=== PATIENT | female | born 1975 | race African-American/Black ===

== ENCOUNTER 2017-04-07 23:21 | Emergency (ER) | payer OTHER ==
[~2017-04-07] VITALS: Ht 152.4 cm; Wt 64.0 kg
[2017-04-08] MEDS ORDERED: TETANUS, DIPHTHERIA, PERTUSSIS VAC/PF 0.5ML (>7YR OLD) IM ONE (03:00)
[2017-04-08] MEDS ORDERED: LIDOCAINE HCL 1% 20ML VIAL (Pyxis) INJ MC ONE (03:00)
[2017-04-08] MEDS ORDERED: BACITRACIN ZINC OINT UDPKT TOP ONE (03:00)
[2017-04-08] MEDS ORDERED: IBUPROFEN 600MG TABLET PO ONE (04:00)
[2017-04-08 04:14] VITALS: BP 122/86
== END 2017-04-08 04:17 | disposition home or self-care (01) ==
LOC: ER 23:30
DX: T16.1XXA Foreign body in right ear, initial encounter (principal); E11.9 Type 2 diabetes mellitus without complications; X58.XXXA Exposure to other specified factors, initial encounter; Y93.89 Activity, other specified; Y92.89 Other specified places as the place of occurrence of the external cause; Y99.8 Other external cause status
CPT/HCPCS: 69200; 82962; 90471; 90715; 99284; J3490; Z7610

== ENCOUNTER 2017-04-23 23:40 | Emergency (ER) | payer OTHER ==
[~2017-04-23] VITALS: Ht 157.5 cm; Wt 67.3 kg
[2017-04-24 03:14] LABS: CLARITY URINE CLEAR (CLEAR); COLOR URINE YELLOW (YELLOW); GLUCOSE URINE 2+ (NEGATIVE); KETONES URINE TRACE (NEGATIVE); LEUKOCYTE ESTERASE URINE 1+ (NEGATIVE); NITRITE URINE NEGATIVE (NEGATIVE); OCCULT BLOOD URINE 3+ (NEGATIVE); PROTEIN URINE NEGATIVE (NEGATIVE); SPECIFIC GRAVITY URINE 1.011 (1.005-1.030); UROBILINOGEN URINE 0.2 E.U./dL (0.2-1.0)
[2017-04-24 07:03] LABS: BASOPHILS % 0.8 % (0.0-2.0); EOSINOPHILS % 3.2 % (0.0-5.0); HEMATOCRIT. 34.7 % (36.0-48.0); HEMOGLOBIN. 11.6 g/dL (12.0-16.0); LYMPHOCYTES % 48.7 % (20.0-50.0); MEAN CORPUSCULAR HEMOGLOBIN 27.2 pg (28.0-32.0); MEAN CORPUSCULAR VOLUME 81.6 fL (81.0-99.0); MEAN PLATELET VOLUME 8.8 fl (7.4-10.4); MONOCYTES % 4.7 % (2.0-8.0); NEUTROPHILS % 42.6 % (40.0-76.0); PLATELET 231 x1000/uL (130-400); RED BLOOD CELL COUNT 4.25 mill/uL (4.2-5.4); RED CELL DISTRIBUTION WIDTH 14.4 % (11.6-14.6)
[2017-04-24 07:05] LABS: CHLORIDE 105 mEq/L (98-107)
[2017-04-24 07:08] LABS: *AMPHETAMINES SCREEN URINE NEGATIVE (NEGATIVE); *BARBITURATES SCREEN URINE NEGATIVE (NEGATIVE); *BENZODIAZEPINES SCREEN URINE NEGATIVE (NEGATIVE); *COCAINE SCREEN URINE NEGATIVE (NEGATIVE); CANNABINOID URINE SCREEN NEGATIVE (NEGATIVE); METHADONE URINE SCREEN NEGATIVE (NEGATIVE); OPIATES URINE SCREEN NEGATIVE (NEGATIVE); PHENCYCLIDINE URINE SCREEN NEGATIVE (NEGATIVE)
[2017-04-24 07:14] LABS: B-HCG QUANTITATIVE < 1 mIU/mL (<3); CARBON DIOXIDE 24 mEq/L (21-32)
[2017-04-24 07:21] LABS: HCG SCREEN NEGATIVE
[2017-04-24 10:35] VITALS: BP 122/77
[2017-04-26 04:12] LABS: CHLAMYDIA TRACHOMATIS NAA Negative (Negative); NEISSERIA GONORRHOEAE NAA Negative (Negative)
== END 2017-04-24 10:38 | disposition home or self-care (01) ==
LOC: ER 23:40
DX: N93.8 Other specified abnormal uterine and vaginal bleeding (principal); N76.0 Acute vaginitis; I10 Essential (primary) hypertension; E11.9 Type 2 diabetes mellitus without complications
CPT/HCPCS: 36415; 76856; 80048; 80305; 81001; 84702; 84703; 85025; 87210; 87491; 87591; 99285

== ENCOUNTER 2017-09-08 15:56 | Emergency (ER) | payer OTHER ==
[~2017-09-08] VITALS: Ht 157.5 cm; Wt 63.0 kg
[2017-09-08] MEDS ORDERED: SODIUM CHLORIDE 0.9% 1,000 ML IV ONE ×2 (16:26→18:00)
[2017-09-08 16:49] LABS: BASOPHILS % 1.3 % (0.0-2.0); EOSINOPHILS % 0.6 % (0.0-5.0); HEMATOCRIT. 35.4 % (36.0-48.0); HEMOGLOBIN. 11.8 g/dL (12.0-16.0); LYMPHOCYTES % 40.5 % (20.0-50.0); MEAN CORPUSCULAR HEMOGLOBIN 27.6 pg (28.0-32.0); MEAN CORPUSCULAR VOLUME 82.3 fL (81.0-99.0); MONOCYTES % 6.3 % (2.0-8.0); NEUTROPHILS % 51.3 % (40.0-76.0); PLATELET 225 x1000/uL (130-400); RED CELL DISTRIBUTION WIDTH 13.8 % (11.6-14.6)
[2017-09-08 17:03] LABS: CARBON DIOXIDE 21 mEq/L (21-32); CHLORIDE 104 mEq/L (98-107)
[2017-09-08] MEDS ORDERED: INSULIN REGULAR (DRIP) 100 UNITS in SODIUM CHLORIDE 0.9% 100 ML IV ONE (17:45)
[2017-09-08] MEDS ORDERED: INSULIN REGULAR (HUMULIN R) 300UNITS/3ML IV ONE (18:00)
[2017-09-08 19:19] LABS: CLARITY URINE CLEAR (CLEAR); COLOR URINE YELLOW (YELLOW); GLUCOSE URINE 3+ (NEGATIVE); KETONES URINE NEGATIVE (NEGATIVE); LEUKOCYTE ESTERASE URINE NEGATIVE (NEGATIVE); NITRITE URINE NEGATIVE (NEGATIVE); OCCULT BLOOD URINE 3+ (NEGATIVE); PH URINE 6.5 (4.5-8.0); PROTEIN URINE NEGATIVE (NEGATIVE); SPECIFIC GRAVITY URINE 1.019 (1.005-1.030); UROBILINOGEN URINE 0.2 E.U./dL (0.2-1.0)
[2017-09-08] MEDS ORDERED: MAGNESIUM/ALUMINUM HYDROXIDE/SIMETHICONE 30ML UDC PO STA (19:32)
[2017-09-08] MEDS ORDERED: VISCOUS LIDOCAINE 2% 15 ML UDC PO STA (19:32)
[2017-09-08 19:46] VITALS: BP 144/87
== END 2017-09-08 20:05 | disposition home or self-care (01) ==
LOC: ER 15:56
DX: E11.65 Type 2 diabetes mellitus with hyperglycemia (principal); R10.13 Epigastric pain; I10 Essential (primary) hypertension; Z87.891 Personal history of nicotine dependence; Z79.84 Long term (current) use of oral hypoglycemic drugs
CPT/HCPCS: 36415; 80053; 81001; 82962; 84484; 85025; 93005; 96361; 96374; 99285; J1815; J7030; Z7610; J7050

== ENCOUNTER 2018-06-25 21:28 | Emergency (ER) | payer OTHER ==
[~2018-06-25] VITALS: Ht 172.7 cm; Wt 91.0 kg
[2018-06-25] MEDS ORDERED: KETOROLAC 30MG/ML VIAL IV ONE (22:45)
[2018-06-25 23:17] LABS: BASOPHILS % 1.2 % (0.0-2.0); EOSINOPHILS % 1.1 % (0.0-5.0); HEMATOCRIT. 35.8 % (36.0-48.0); HEMOGLOBIN. 12.2 g/dL (12.0-16.0); LYMPHOCYTES % 40.9 % (20.0-50.0); MEAN CORPUSCULAR HEMOGLOBIN 28.3 pg (28.0-32.0); MEAN CORPUSCULAR VOLUME 82.9 fL (81.0-99.0); MEAN PLATELET VOLUME 9.1 fl (7.4-10.4); MONOCYTES % 7.3 % (2.0-8.0); NEUTROPHILS % 49.5 % (40.0-76.0); PLATELET 265 x1000/uL (130-400); RED BLOOD CELL COUNT 4.32 mill/uL (4.2-5.4); RED CELL DISTRIBUTION WIDTH 13.8 % (11.6-14.6)
[2018-06-25 23:22] LABS: CHLORIDE 102 mEq/L (98-107)
[2018-06-25 23:23] LABS: INR 0.9; PROTHROMBIN TIME 9.4 sec (9.1-11.1)
[2018-06-25 23:32] LABS: BETA HYDROXYBUTYRATE 0.1 mMol/L (0.0-0.3)
[2018-06-26 00:01] LABS: CLARITY URINE CLEAR (CLEAR); COLOR URINE YELLOW (YELLOW); KETONES URINE NEGATIVE (NEGATIVE); LEUKOCYTE ESTERASE URINE NEGATIVE (NEGATIVE); NITRITE URINE NEGATIVE (NEGATIVE); OCCULT BLOOD URINE 3+ (NEGATIVE); PROTEIN URINE NEGATIVE (NEGATIVE); SPECIFIC GRAVITY URINE 1.008 (1.005-1.030); UROBILINOGEN URINE 0.2 E.U./dL (0.2-1.0)
[2018-06-26 01:47] VITALS: BP 128/82
== END 2018-06-26 02:13 | disposition home or self-care (01) ==
LOC: ER 21:28
DX: E11.65 Type 2 diabetes mellitus with hyperglycemia (principal); N93.8 Other specified abnormal uterine and vaginal bleeding; I10 Essential (primary) hypertension; D64.9 Anemia, unspecified
CPT/HCPCS: 36415; 80053; 81003; 81025; 82010; 85025; 85610; 96374; 99284; J1885; Z7610

== ENCOUNTER 2018-10-13 20:54 | Emergency (ER) | payer OTHER ==
[~2018-10-13] VITALS: Ht 165.1 cm; Wt 75.0 kg
[2018-10-13] MEDS ORDERED: SODIUM CHLORIDE 0.9% 1,000 ML IV ONE (22:17)
[2018-10-13] MEDS ORDERED: KETOROLAC 30MG/ML VIAL IV STA (22:17)
[2018-10-13 23:30] LABS: EOSINOPHILS % 0.6 % (0.0-5.0); HEMATOCRIT. 34.4 % (36.0-48.0); HEMOGLOBIN. 11.3 g/dL (12.0-16.0); LYMPHOCYTES % 22.2 % (20.0-50.0); MEAN CORPUSCULAR HEMOGLOBIN 26.1 pg (28.0-32.0); MEAN CORPUSCULAR VOLUME 79.8 fL (81.0-99.0); MEAN PLATELET VOLUME 9.6 fl (7.4-10.4); MONOCYTES % 5.8 % (2.0-8.0); NEUTROPHILS % 70.4 % (40.0-76.0); PLATELET 333 x1000/uL (130-400); RED BLOOD CELL COUNT 4.32 mill/uL (4.2-5.4); RED CELL DISTRIBUTION WIDTH 15.6 % (11.6-14.6)
[2018-10-13 23:33] LABS: CHLORIDE 105 mEq/L (98-107)
[2018-10-13 23:38] LABS: CLARITY URINE CLEAR (CLEAR); COLOR URINE YELLOW (YELLOW); KETONES URINE TRACE (NEGATIVE); LEUKOCYTE ESTERASE URINE NEGATIVE (NEGATIVE); NITRITE URINE NEGATIVE (NEGATIVE); OCCULT BLOOD URINE NEGATIVE (NEGATIVE); PH URINE 5.5 (4.5-8.0); PROTEIN URINE NEGATIVE (NEGATIVE); SPECIFIC GRAVITY URINE 1.032 (1.005-1.030)
[2018-10-14] MEDS ORDERED: SODIUM CHLORIDE 0.9% 1,000 ML IV ONE (00:30)
[2018-10-14] MEDS ORDERED: INSULIN REGULAR (HUMULIN R) UD 100 UNITS/ML SYR IV ONE (00:30)
[2018-10-14 05:28] VITALS: BP 145/82
== END 2018-10-14 05:31 | disposition left against medical advice (07) ==
LOC: ER 21:55 → EDBEDREQ 10-14 02:38 → ER 10-14 05:31 → CANBEDREQ 10-14 06:06
DX: E11.65 Type 2 diabetes mellitus with hyperglycemia (principal); R51 Headache
CPT/HCPCS: 36415; 80053; 81003; 81025; 82010; 82962; 85025; 96361; 96374; 99284; J1815; J1885; J7030

== ENCOUNTER 2018-10-28 14:45 | Emergency (ER) | payer OTHER ==
[~2018-10-28] VITALS: Ht 160 cm; Wt 63.0 kg
[2018-10-28 15:22] VITALS: BP 132/81
== END 2018-10-28 17:50 | disposition left against medical advice (07) ==
LOC: ER 17:36
DX: I10 Essential (primary) hypertension (principal); Z53.21 Procedure and treatment not carried out due to patient leaving prior to being seen by health care provider
CPT/HCPCS: 82962

== ENCOUNTER 2019-02-26 11:33 | Emergency (ER) | payer OTHER ==
[~2019-02-26] VITALS: Ht 170.2 cm; Wt 79.0 kg
[2019-02-26 11:38] VITALS: BP 145/76
[2019-02-26] MEDS ORDERED: KETOROLAC 30MG/ML VIAL IM ONE (14:30)
[2019-02-26 14:58] LABS: CLARITY URINE CLEAR (CLEAR); COLOR URINE YELLOW (YELLOW); KETONES URINE NEGATIVE (NEGATIVE); LEUKOCYTE ESTERASE URINE 1+ (NEGATIVE); NITRITE URINE NEGATIVE (NEGATIVE); OCCULT BLOOD URINE 1+ (NEGATIVE); PROTEIN URINE NEGATIVE (NEGATIVE); SPECIFIC GRAVITY URINE 1.037 (1.005-1.030); UROBILINOGEN URINE 0.2 E.U./dL (0.2-1.0)
== END 2019-02-26 15:42 | disposition home or self-care (01) ==
LOC: ER 11:33
DX: M54.5 Low back pain (principal); D64.9 Anemia, unspecified; E11.9 Type 2 diabetes mellitus without complications
CPT/HCPCS: 81003; 81025; 82962; 87077; 87086; 96372; 99283; J1885

== ENCOUNTER 2019-09-18 21:02 | Emergency (ER) | payer OTHER ==
[~2019-09-18] VITALS: Ht 170.2 cm; Wt 73.0 kg
[2019-09-18] MEDS ORDERED: IBUPROFEN 400MG TABLET PO ONE (22:45)
[2019-09-18 22:57] VITALS: BP 132/70
== END 2019-09-18 22:57 | disposition home or self-care (01) ==
LOC: ER 21:02
DX: J06.9 Acute upper respiratory infection, unspecified (principal); H92.01 Otalgia, right ear; E11.9 Type 2 diabetes mellitus without complications
CPT/HCPCS: 99283

== ENCOUNTER 2021-11-14 11:56 | Emergency (ER) | payer OTHER ==
[~2021-11-14] VITALS: Ht 157.5 cm; Wt 68.0 kg
[2021-11-14 12:03] VITALS: BP 122/67
[2021-11-14] MEDS ORDERED: IBUPROFEN 600MG TABLET PO ONE (15:00)
== END 2021-11-14 15:18 | disposition home or self-care (01) ==
LOC: ER 11:56
DX: N64.4 Mastodynia (principal); E11.9 Type 2 diabetes mellitus without complications
CPT/HCPCS: 76641; 99284

== ENCOUNTER 2022-03-01 20:12 | Emergency (ER) | payer OTHER ==
[~2022-03-01] VITALS: Ht 157.5 cm; Wt 71.6 kg
[2022-03-01] MEDS ORDERED: ALBUTEROL (0.083%) 2.5MG/3ML NEB HHN STA (20:55)
[2022-03-01] MEDS ORDERED: ALBU6.7H9 INH (22:24)
[2022-03-01 22:30] VITALS: BP 133/69
== END 2022-03-01 22:38 | disposition home or self-care (01) ==
LOC: ER 20:12
DX: R06.02 Shortness of breath (principal); J45.901 Unspecified asthma with (acute) exacerbation; D64.9 Anemia, unspecified; E11.9 Type 2 diabetes mellitus without complications
CPT/HCPCS: 71045; 93005; 94640; 99283; Z7610

== ENCOUNTER 2022-04-10 12:58 | Emergency (ER) | payer OTHER ==
[~2022-04-10] VITALS: Ht 167.6 cm; Wt 97.0 kg
[~2022-04-10 12:58] MED LIST: ALBU6.7H9 INH
[2022-04-10] MEDS ORDERED: SODIUM CHLORIDE 0.9% 1,000 ML IV ONE ×2 (14:00)
[2022-04-10] MEDS ORDERED: INSULIN REGULAR (HUMULIN R) 300UNITS/3ML VIAL SUBCUT ONE (14:00)
[2022-04-10 14:15] LABS: BASOPHILS % 0.7 % (0.0-2.0); EOSINOPHILS % 0.2 % (0.0-5.0); HEMATOCRIT. 37.8 % (36.0-48.0); HEMOGLOBIN. 12.1 g/dL (12.0-16.0); LYMPHOCYTES % 21.3 % (20.0-50.0); MEAN CORPUSCULAR HEMOGLOBIN 28.2 pg (28.0-32.0); MEAN CORPUSCULAR VOLUME 88.3 fL (81.0-99.0); MEAN PLATELET VOLUME 9.4 fl (7.4-10.4); MONOCYTES % 6.5 % (2.0-8.0); NEUTROPHILS % 71.3 % (40.0-76.0); PLATELET 216 x1000/uL (130-400); RED BLOOD CELL COUNT 4.29 mill/uL (4.2-5.4); RED CELL DISTRIBUTION WIDTH 13.8 % (11.6-14.6)
[2022-04-10 14:20] LABS: CLARITY URINE CLEAR (CLEAR); COLOR URINE YELLOW (YELLOW); KETONES URINE TRACE (NEGATIVE); LEUKOCYTE ESTERASE URINE NEGATIVE (NEGATIVE); NITRITE URINE NEGATIVE (NEGATIVE); OCCULT BLOOD URINE NEGATIVE (NEGATIVE); PH URINE 5.5 (4.5-8.0); PROTEIN URINE NEGATIVE (NEGATIVE); SPECIFIC GRAVITY URINE 1.027 (1.005-1.030); UROBILINOGEN URINE 0.2 E.U./dL (0.2-1.0)
[2022-04-10 14:21] LABS: CHLORIDE 105 mEq/L (98-107)
[2022-04-10 14:31] LABS: HCG SCREEN NEGATIVE
[2022-04-10 14:33] LABS: BETA HYDROXYBUTYRATE 0.2 mMol/L (0.0-0.3)
[2022-04-10 14:58] LABS: BG BASE EXCESS -7.5 mmol/L (-2.0-2.0); BG CARBOXYHEMOGLOBIN 0.3 % (0.5-1.5); BG DEOXYHEMOGLOBIN 2.7 % (0.0-5.0); BG FRACTION INSPIRED OXYGEN 21; BG HCO3 ACT 16.9 mmol/L (22.0-26.0); BG METHEMOGLOBIN 0.2 % (0.0-1.5); BG OXYGEN SATURATION 97.3 % (92.0-98.5); BG OXYHEMOGLOBIN 96.8 % (94.0-97.0); BG PCO2 30.9 mmHg (35.0-45.0); BG PH 7.355 (7.350-7.450); BG PO2 105.2 mmHg (75.0-100.0); BG SAMPLE SITE RIGHT RADIAL; BG VENT MODE ROOM AIR
[2022-04-10 18:10] VITALS: BP 146/69
== END 2022-04-10 18:22 | disposition home or self-care (01) ==
LOC: ER 13:11
DX: E11.65 Type 2 diabetes mellitus with hyperglycemia (principal); J45.909 Unspecified asthma, uncomplicated; Z79.4 Long term (current) use of insulin
CPT/HCPCS: 36415; 36600; 71045; 80053; 81003; 82010; 82375; 82805; 82962; 83605; 84484; 84703; 85025; 93005; 96360; 96372; 99285; J1815; J7030

== ENCOUNTER 2022-12-01 17:00 | Emergency (ER) | payer OTHER ==
[~2022-12-01] VITALS: Ht 149.9 cm; Wt 68.5 kg
[~2022-12-01 17:00] MED LIST changes: +ALBU6.7H3 INH; -ALBU6.7H9 INH
[2022-12-01 17:06] VITALS: BP 161/79
[2022-12-01 18:57] LABS: HEMOGLOBIN 12.7 g/dL (12.0-16.0); MEAN CORPUSCULAR HEMOGLOBIN 27.9 pg (28.0-32.0); MEAN CORPUSCULAR VOLUME 83.5 fL (81.0-99.0); PLATELET 267 x1000/uL (130-400); RED BLOOD CELL COUNT 4.54 mill/uL (4.2-5.4); RED CELL DISTRIBUTION WIDTH 13.6 % (11.6-14.6)
[2022-12-01 19:06] LABS: CHLORIDE 103 mEq/L (98-107)
[2022-12-01 19:16] LABS: BETA HYDROXYBUTYRATE 0.4 mMol/L (0.0-0.3)
[2022-12-01] MEDS ORDERED: INSULIN LISPRO 100 UNITS/ML SUBCUT NR (20:00)
[2022-12-01] MEDS ORDERED: INSU100V37 SQ (20:02)
== END 2022-12-01 20:48 | disposition home or self-care (01) ==
LOC: ER 17:28
DX: E11.65 Type 2 diabetes mellitus with hyperglycemia (principal); Z76.0 Encounter for issue of repeat prescription
CPT/HCPCS: 36415; 80053; 82010; 82962; 83036; 83690; 85027; 96372; 99283; J1815

== ENCOUNTER 2023-03-18 08:58 | Emergency (ER) | payer OTHER ==
[~2023-03-18] VITALS: Ht 167.6 cm; Wt 60.0 kg
[~2023-03-18 08:58] MED LIST changes: +INSU100V37 SQ
[2023-03-18] MEDS ORDERED: SODIUM CHLORIDE 0.9% 1,000 ML IV ONE (09:30)
[2023-03-18 10:05] LABS: BASOPHILS % 0.5 % (0.0-2.0); EOSINOPHILS % 0.9 % (0.0-5.0); HEMATOCRIT. 35.6 % (36.0-48.0); HEMOGLOBIN. 11.9 g/dL (12.0-16.0); LYMPHOCYTES % 27.4 % (20.0-50.0); MEAN CORPUSCULAR HEMOGLOBIN 28.2 pg (28.0-32.0); MEAN CORPUSCULAR VOLUME 84.7 fL (81.0-99.0); MEAN PLATELET VOLUME 8.7 fl (7.4-10.4); MONOCYTES % 4.7 % (2.0-8.0); NEUTROPHILS % 66.5 % (40.0-76.0); PLATELET 299 x1000/uL (130-400); RED BLOOD CELL COUNT 4.21 mill/uL (4.2-5.4); RED CELL DISTRIBUTION WIDTH 15.2 % (11.6-14.6)
[2023-03-18 10:12] LABS: CHLORIDE 103 mEq/L (98-107)
[2023-03-18 10:25] LABS: B-HCG QUANTITATIVE < 1 mIU/mL (<3)
[2023-03-18] MEDS ORDERED: INSULIN REGULAR (HUMULIN R) 300UNITS/3ML VIAL SUBCUT NR (11:45)
[2023-03-18] MEDS ORDERED: IRON15TA3 MT (12:29)
[2023-03-18] MEDS ORDERED: INSU100I32 SQ (12:29)
[2023-03-18 13:01] LABS: CLARITY URINE CLOUDY (CLEAR); COLOR URINE RED (YELLOW); KETONES URINE 1+ (NEGATIVE); LEUKOCYTE ESTERASE URINE TRACE (NEGATIVE); NITRITE URINE NEGATIVE (NEGATIVE); OCCULT BLOOD URINE 3+ (NEGATIVE); PH URINE 5.5 (4.5-8.0); PROTEIN URINE 1+ (NEGATIVE); SPECIFIC GRAVITY URINE 1.039 (1.005-1.030)
[2023-03-18 13:09] VITALS: BP 124/82
== END 2023-03-18 13:13 | disposition home or self-care (01) ==
LOC: ER 08:58
DX: N93.8 Other specified abnormal uterine and vaginal bleeding (principal); E11.65 Type 2 diabetes mellitus with hyperglycemia; J45.909 Unspecified asthma, uncomplicated; E11.9 Type 2 diabetes mellitus without complications; I10 Essential (primary) hypertension; Z79.4 Long term (current) use of insulin
CPT/HCPCS: 36415; 76830; 76856; 80053; 81003; 81025; 82962; 84702; 85025; 86850; 86900; 86901; 96360; 96372; 99285; J1815; J7030

== ENCOUNTER 2023-06-14 20:02 | Emergency (ER) | payer OTHER ==
[~2023-06-14] VITALS: Ht 154.9 cm; Wt 71.3 kg
[~2023-06-14 20:02] MED LIST changes: +INSU100I32 SQ; +IRON15TA3 MT
[2023-06-14 20:13] VITALS: O2SAT 100
[2023-06-14] MEDS ORDERED: ACET-2708 MT (22:48)
[2023-06-14] MEDS ORDERED: CEPH500C2 MT (22:48)
[2023-06-14] MEDS ORDERED: SULF1TAB48 MT (22:48)
[2023-06-14 23:13] VITALS: BP 167/79; PULSE 91; RESP 16; TEMP 98.3
[2023-06-14] MEDS ORDERED: KETOROLAC 60MG/2ML VIAL IM ONE (23:15)
== END 2023-06-14 23:23 | disposition home or self-care (01) ==
LOC: ER 20:02
DX: L02.219 Cutaneous abscess of trunk, unspecified (principal); D64.9 Anemia, unspecified; J45.909 Unspecified asthma, uncomplicated; E11.9 Type 2 diabetes mellitus without complications; I10 Essential (primary) hypertension; Z79.899 Other long term (current) drug therapy
CPT/HCPCS: 99283; 96372; J1885

== ENCOUNTER 2023-08-06 21:07 | Emergency (ER) | payer OTHER ==
[~2023-08-06] VITALS: Ht 170.2 cm; Wt 70.0 kg
[~2023-08-06 21:07] MED LIST changes: +ACET-2708 MT; +CEPH500C2 MT; -INSU100V37 SQ; +INSU100V43 SQ; +SULF1TAB48 MT
[2023-08-06 21:10] VITALS: O2SAT 100
[2023-08-06] MEDS ORDERED: SODIUM CHLORIDE 0.9% 1,000 ML IV ONE (22:00)
[2023-08-06 22:10] LABS: BG CARBOXYHEMOGLOBIN 0.3 % (0.5-1.5); BG DEOXYHEMOGLOBIN 3.1 % (0.0-5.0); BG FRACTION INSPIRED OXYGEN 21; BG HCO3 ACT 22.1 mmol/L (22.0-26.0); BG METHEMOGLOBIN 0.1 % (0.0-1.5); BG OXYGEN SATURATION 96.9 % (92.0-98.5); BG OXYHEMOGLOBIN 96.5 % (94.0-97.0); BG PCO2 35.6 mmHg (35.0-45.0); BG SAMPLE SITE LEFT RADIAL; BG TOTAL HEMOGLOBIN 13.1 g/dL (12.0-18.0); BG VENT MODE ROOM AIR
[2023-08-06 22:27] LABS: BASOPHILS % 0.9 % (0.0-2.0); EOSINOPHILS % 0.4 % (0.0-5.0); HEMATOCRIT. 36.7 % (36.0-48.0); HEMOGLOBIN. 12.2 g/dL (12.0-16.0); LYMPHOCYTES % 41.6 % (20.0-50.0); MEAN CORPUSCULAR HEMOGLOBIN 28.2 pg (28.0-32.0); MEAN CORPUSCULAR HGB CONC 33.3 g/dL (31.0-37.0); MEAN CORPUSCULAR VOLUME 84.5 fL (81.0-99.0); MEAN PLATELET VOLUME 8.6 fl (7.4-10.4); MONOCYTES % 4.8 % (2.0-8.0); NEUTROPHILS % 52.3 % (40.0-76.0); PLATELET 317 x1000/uL (130-400); RED BLOOD CELL COUNT 4.34 mill/uL (4.2-5.4); RED CELL DISTRIBUTION WIDTH 14.8 % (11.6-14.6)
[2023-08-06 22:35] LABS: CHLORIDE 103 mEq/L (98-107); INDEX HEMOLYSI 1 (1-3); INDEX ICTERIC 1 (1-4); INDEX LIPEMIC 1 (1-3); POTASSIUM 3.5 mEq/L (3.5-5.1); SODIUM 135 mEq/L (136-145)
[2023-08-06 22:38] LABS: INR 0.9
[2023-08-06 22:45] LABS: HCG SCREEN NEGATIVE
[2023-08-06 22:46] LABS: ALANINE AMINOTRANSFERASE 18 IU/L (13-61); ALBUMIN 3.9 g/dL (3.4-5.0); ASPARTATE AMINOTRANSFERASE 13 IU/L (15-37); BETA HYDROXYBUTYRATE 0.1 mMol/L (0.0-0.3); BILIRUBIN TOTAL 0.2 mg/dL (0.1-1.0); CALCIUM 9.8 mg/dL (8.5-10.1); CARBON DIOXIDE 20 mEq/L (21-32); GLUCOSE 204 mg/dL (70-105); PROTEIN TOTAL 8.8 g/dL (6.0-8.3); TROPONIN I HIGH SENSITIVITY 4 ng/L (<54); UREA NITROGEN BLOOD 14 mg/dL (7-21)
[2023-08-06 23:05] LABS: CLARITY URINE CLEAR (CLEAR); COLOR URINE YELLOW (YELLOW); GLUCOSE URINE 3+ (NEGATIVE); KETONES URINE NEGATIVE (NEGATIVE); LEUKOCYTE ESTERASE URINE NEGATIVE (NEGATIVE); NITRITE URINE NEGATIVE (NEGATIVE); OCCULT BLOOD URINE NEGATIVE (NEGATIVE); PH URINE 5.5 (4.5-8.0); PROTEIN URINE NEGATIVE (NEGATIVE); SPECIFIC GRAVITY URINE 1.027 (1.005-1.030)
[2023-08-06 23:08] LABS: RBC URINE 0-2 /hpf (0-2); WBC URINE 0-2 /hpf (0-2); YEAST URINE NONE SEEN
[2023-08-06 23:25] LABS: BACTERIA URINE 1+; SQUAMOUS EPITHELIAL CELL URINE FEW /lpf (RARE/1+)
[2023-08-06] MEDS ORDERED: DEXTROSE 50% WATER 50ML SYRINGE IV NR (23:30)
[2023-08-07 03:00] VITALS: BP 132/68; PULSE 80; RESP 17; TEMP 98.5
== END 2023-08-07 03:27 | disposition home or self-care (01) ==
LOC: ER 21:07
DX: E11.65 Type 2 diabetes mellitus with hyperglycemia (principal); J45.909 Unspecified asthma, uncomplicated; I10 Essential (primary) hypertension; D64.9 Anemia, unspecified; R63.1 Polydipsia; R05.9 Cough, unspecified
CPT/HCPCS: 80053; 81003; 82010; 82962 ×2; 84703; 83690; 85025; 85610; 84484; 36415; 71045; 82805; 82375; 96361; 96374; 99285; 36600; J7030; Z7610 ×2

== ENCOUNTER 2023-11-05 18:16 | Emergency (ER) | payer MEDICAID, OTHER ==
[~2023-11-05] VITALS: Ht 157.5 cm; Wt 52.2 kg
[2023-11-05 18:42] VITALS: O2SAT 99
[2023-11-05] MEDS ORDERED: IBUPROFEN 600MG TABLET PO STA (18:59)
[2023-11-05] MEDS ORDERED: LANC1COM2 MC (19:25)
[2023-11-05] MEDS ORDERED: INSU100I32 SQ (19:25)
[2023-11-05] MEDS ORDERED: BENZ1LOZ73 MT (19:28)
[2023-11-05] MEDS ORDERED: DEXAMETHASONE 0.5MG/5ML ORAL SYR PO ONE (19:30)
[2023-11-05] MEDS ORDERED: DEXAMETHASONE 10 MG/ML VIAL PO NR (19:45)
[2023-11-05] MEDS ORDERED: IBUPROFEN 600MG TABLET PO NR (21:15)
[2023-11-05 21:39] VITALS: TEMP 98.2
[2023-11-05 21:42] VITALS: BP 120/75; PULSE 97; RESP 16
== END 2023-11-05 21:45 | disposition home or self-care (01) ==
LOC: ER 18:16
DX: J02.9 Acute pharyngitis, unspecified (principal); E11.9 Type 2 diabetes mellitus without complications
CPT/HCPCS: 99283; 71045; 82962; J1100; J8540

== ENCOUNTER 2024-02-05 17:58 | Emergency (ER) | payer MEDICAID, OTHER ==
[~2024-02-05] VITALS: Ht 165.1 cm; Wt 100.0 kg
[~2024-02-05 17:58] MED LIST changes: +BENZ1LOZ73 MT; +LANC1COM2 MC
[2024-02-05 18:16] VITALS: BP 139/68; PULSE 113; RESP 18; TEMP 98.5; O2SAT 98
[2024-02-05] MEDS ORDERED: SODIUM CHLORIDE 0.9% 1,000 ML IV ONE (19:15)
[2024-02-05 20:11] LABS: BASOPHILS % 0.6 % (0.0-2.0); EOSINOPHILS % 1.1 % (0.0-5.0); HEMATOCRIT. 33.7 % (36.0-48.0); MEAN CORPUSCULAR HEMOGLOBIN 27.7 pg (28.0-32.0); MEAN CORPUSCULAR HGB CONC 32.5 g/dL (31.0-37.0); MEAN CORPUSCULAR VOLUME 85.1 fL (81.0-99.0); MEAN PLATELET VOLUME 9.2 fl (7.4-10.4); MONOCYTES % 5.3 % (2.0-8.0); PLATELET 293 x1000/uL (130-400); RED BLOOD CELL COUNT 3.96 mill/uL (4.2-5.4); WHITE BLOOD COUNT 8.7 x1000/uL (4.5-11.0)
[2024-02-05 20:38] LABS: ALANINE AMINOTRANSFERASE 23 IU/L (10-49); ALBUMIN 4.6 g/dL (3.2-4.8); ASPARTATE AMINOTRANSFERASE 31 IU/L (<34); BETA HYDROXYBUTYRATE 0.2 mMol/L (0.0-0.3); BILIRUBIN TOTAL 0.2 mg/dL (0.1-1.0); CARBON DIOXIDE 18 mEq/L (21-32); CHLORIDE 100 mEq/L (98-107); CREATININE 1.4 mg/dL (0.6-1.0); POTASSIUM 4.8 mEq/L (3.5-5.1); PROTEIN TOTAL 8.3 g/dL (6.0-8.3); SODIUM 129 mEq/L (136-145); UREA NITROGEN BLOOD 14 mg/dL (9-23)
[2024-02-05 20:44] LABS: GLUCOSE 523 mg/dL (70-105)
[2024-02-05] MEDS: SODIUM CHLORIDE 0.9% 1,000 ML IV ONE (22:31)
[2024-02-05] MEDS ORDERED: DEXTROSE 50% WATER 50ML SYRINGE IV PRN (22:45)
[2024-02-05] MEDS ORDERED: LANC1COM2 MC (23:36)
[2024-02-05] MEDS ORDERED: INSU100V43 SQ (23:36)
[2024-02-05] MEDS ORDERED: INSU100I32 SQ (23:36)
[2024-02-05] MEDS: INSULIN LISPRO 100 UNITS/ML SUBCUT SCH (23:37)
[2024-02-06] MEDS ORDERED: BLOOD SUGAR DIAGNOSTIC STRIP TEST SCH (09:00)
[2024-02-16] MEDS ORDERED: INSU100I28 SQ (09:21)
== END 2024-02-06 01:46 | disposition home or self-care (01) ==
LOC: ER 17:58
DX: E11.65 Type 2 diabetes mellitus with hyperglycemia (principal); N17.9 Acute kidney failure, unspecified; J45.909 Unspecified asthma, uncomplicated; Z79.899 Other long term (current) drug therapy
CPT/HCPCS: 99285; 93970; 96360; 80053; 82010; 82962 ×2; 85025; 36415; 96372; J7030; J1815

== ENCOUNTER 2024-02-27 19:09 | Emergency (ER) | payer OTHER ==
[~2024-02-27] VITALS: Ht 160 cm; Wt 91.0 kg
[~2024-02-27 19:09] MED LIST changes: -CEPH500C2 MT; +INSU100I28 SQ; -SULF1TAB48 MT
[2024-02-27 19:17] VITALS: O2SAT 99
[2024-02-27 22:42] LABS: CHLORIDE 100 mEq/L (98-107); POTASSIUM 4.4 mEq/L (3.5-5.1); SODIUM 130 mEq/L (136-145)
[2024-02-27 22:43] LABS: CARBON DIOXIDE 22 mEq/L (21-32)
[2024-02-27 22:44] LABS: CALCIUM 9.2 mg/dL (8.7-10.4)
[2024-02-27 22:47] LABS: BASOPHILS % 0.5 % (0.0-2.0); EOSINOPHILS % 0.9 % (0.0-5.0); HEMATOCRIT. 35.9 % (36.0-48.0); HEMOGLOBIN. 11.9 g/dL (12.0-16.0); LYMPHOCYTES % 44.4 % (20.0-50.0); MEAN CORPUSCULAR HEMOGLOBIN 27.6 pg (28.0-32.0); MEAN CORPUSCULAR HGB CONC 33.1 g/dL (31.0-37.0); MEAN CORPUSCULAR VOLUME 83.4 fL (81.0-99.0); MEAN PLATELET VOLUME 8.2 fl (7.4-10.4); MONOCYTES % 5.9 % (2.0-8.0); NEUTROPHILS % 48.3 % (40.0-76.0); PLATELET 329 x1000/uL (130-400); RED BLOOD CELL COUNT 4.31 mill/uL (4.2-5.4); RED CELL DISTRIBUTION WIDTH 14.8 % (11.6-14.6)
[2024-02-27 22:48] LABS: GLUCOSE 355 mg/dL (70-105); UREA NITROGEN BLOOD 13 mg/dL (9-23)
[2024-02-27 22:50] LABS: ALANINE AMINOTRANSFERASE < 7 IU/L (10-49); ALBUMIN 4.4 g/dL (3.2-4.8); ASPARTATE AMINOTRANSFERASE 9 IU/L (<34); BILIRUBIN TOTAL 0.4 mg/dL (0.1-1.0)
[2024-02-27 22:51] LABS: BETA HYDROXYBUTYRATE 0.4 mMol/L (0.0-0.3); PROTEIN TOTAL 7.8 g/dL (6.0-8.3)
[2024-02-27] MEDS ORDERED: LANC1COM2 MC (23:10)
[2024-02-27] MEDS ORDERED: INSU100I32 SQ (23:10)
[2024-02-27] MEDS ORDERED: INSU100I28 SQ (23:10)
[2024-02-27 23:35] VITALS: BP 123/72; PULSE 89; RESP 16; TEMP 98
== END 2024-02-27 23:35 | disposition home or self-care (01) ==
LOC: ER 19:19
DX: E11.65 Type 2 diabetes mellitus with hyperglycemia (principal); J45.909 Unspecified asthma, uncomplicated; I10 Essential (primary) hypertension
CPT/HCPCS: 36415; 80053; 82010; 82962; 85025; 99283

== ENCOUNTER 2024-03-22 22:39 | Emergency (ER) | payer OTHER ==
[~2024-03-22] VITALS: Ht 157.5 cm; Wt 82.0 kg
[2024-03-22 23:02] VITALS: BP 130/58; PULSE 110; RESP 18; TEMP 98.3; O2SAT 99
[2024-03-22 23:58] LABS: BASOPHILS % 0.6 % (0.0-2.0); HEMATOCRIT. 34.1 % (36.0-48.0); HEMOGLOBIN. 11.2 g/dL (12.0-16.0); LYMPHOCYTES % 24.3 % (20.0-50.0); MEAN CORPUSCULAR HEMOGLOBIN 27.5 pg (28.0-32.0); MEAN CORPUSCULAR HGB CONC 32.8 g/dL (31.0-37.0); MEAN CORPUSCULAR VOLUME 83.9 fL (81.0-99.0); MEAN PLATELET VOLUME 8.4 fl (7.4-10.4); MONOCYTES % 6.1 % (2.0-8.0); PLATELET 345 x1000/uL (130-400); RED BLOOD CELL COUNT 4.06 mill/uL (4.2-5.4); WHITE BLOOD COUNT 12.2 x1000/uL (4.5-11.0)
[2024-03-23 00:06] LABS: CHLORIDE 105 mEq/L (98-107); POTASSIUM 4.5 mEq/L (3.5-5.1); SODIUM 133 mEq/L (136-145)
[2024-03-23 00:07] LABS: CALCIUM 9.2 mg/dL (8.7-10.4); CARBON DIOXIDE 21 mEq/L (21-32)
[2024-03-23 00:12] LABS: CREATININE 1.3 mg/dL (0.6-1.0); GLUCOSE 381 mg/dL (70-105); UREA NITROGEN BLOOD 23 mg/dL (9-23)
[2024-03-23 00:14] LABS: ALANINE AMINOTRANSFERASE 13 IU/L (10-49); ALBUMIN 4.2 g/dL (3.2-4.8); ASPARTATE AMINOTRANSFERASE 15 IU/L (<34); BILIRUBIN TOTAL 0.4 mg/dL (0.1-1.0); PROTEIN TOTAL 7.6 g/dL (6.0-8.3)
[2024-03-23 00:25] LABS: BILIRUBIN DIRECT < 0.1 mg/dL (<=3.0)
[2024-03-23] MEDS: ACETAMINOPHEN 325MG TABLET PO STA (00:39)
[2024-03-23] MEDS: ONDANSETRON 4MG ODT PO STA (00:39)
[2024-03-23] MEDS ORDERED: PROT40 MT (01:02)
[2024-03-23] MEDS ORDERED: ACET-2708 MT (01:02)
== END 2024-03-23 02:05 | disposition home or self-care (01) ==
LOC: ER 22:39
DX: K29.70 Gastritis, unspecified, without bleeding (principal); J45.909 Unspecified asthma, uncomplicated; E11.9 Type 2 diabetes mellitus without complications; I10 Essential (primary) hypertension; Z79.899 Other long term (current) drug therapy
CPT/HCPCS: 99284; 80076; 80048; 83690; 85025; 36415; 93005; Q0162

== ENCOUNTER 2024-04-11 20:07 | Emergency (ER) | payer OTHER ==
[~2024-04-11] VITALS: Ht 162.6 cm; Wt 80.9 kg
[~2024-04-11 20:07] MED LIST changes: +DOCU-138 MT; +PHEN51CR24 RC; +PROT40 MT
[2024-04-11 20:19] VITALS: TEMP 98.3; O2SAT 98
[2024-04-11 20:45] LABS: BASOPHILS % 0.3 % (0.0-2.0); EOSINOPHILS % 1.5 % (0.0-5.0); HEMATOCRIT. 33.2 % (36.0-48.0); HEMOGLOBIN. 11.1 g/dL (12.0-16.0); LYMPHOCYTES % 28.6 % (20.0-50.0); MEAN CORPUSCULAR HEMOGLOBIN 28.1 pg (28.0-32.0); MEAN CORPUSCULAR HGB CONC 33.4 g/dL (31.0-37.0); MEAN CORPUSCULAR VOLUME 84.1 fL (81.0-99.0); MEAN PLATELET VOLUME 8.7 fl (7.4-10.4); MONOCYTES % 5.3 % (2.0-8.0); NEUTROPHILS % 64.3 % (40.0-76.0); PLATELET 291 x1000/uL (130-400); RED BLOOD CELL COUNT 3.95 mill/uL (4.2-5.4); RED CELL DISTRIBUTION WIDTH 14.9 % (11.6-14.6); WHITE BLOOD COUNT 10.9 x1000/uL (4.5-11.0)
[2024-04-11 20:51] LABS: CHLORIDE 102 mEq/L (98-107); POTASSIUM 3.9 mEq/L (3.5-5.1); SODIUM 137 mEq/L (136-145)
[2024-04-11 20:52] LABS: CALCIUM 9.2 mg/dL (8.7-10.4); CARBON DIOXIDE 28 mEq/L (21-32)
[2024-04-11 20:57] LABS: CREATININE 1.3 mg/dL (0.6-1.0); GLUCOSE 250 mg/dL (70-105); UREA NITROGEN BLOOD 17 mg/dL (9-23)
[2024-04-11 20:59] LABS: ALANINE AMINOTRANSFERASE 13 IU/L (10-49); ALBUMIN 4.3 g/dL (3.2-4.8); ASPARTATE AMINOTRANSFERASE 14 IU/L (<34); BILIRUBIN DIRECT < 0.1 mg/dL (<=3.0); BILIRUBIN TOTAL 0.2 mg/dL (0.1-1.0); PROTEIN TOTAL 7.5 g/dL (6.0-8.3)
[2024-04-11 22:41] LABS: HCG SCREEN NEGATIVE
[2024-04-12] VITALS: BP 148/59; PULSE 96; RESP 16
[2024-04-12] MEDS: KETOROLAC 30MG/ML VIAL IM ONE
[2024-04-12 00:37] LABS: CLARITY URINE CLEAR (CLEAR); COLOR URINE YELLOW (YELLOW); GLUCOSE URINE TRACE (NEGATIVE); KETONES URINE NEGATIVE (NEGATIVE); LEUKOCYTE ESTERASE URINE TRACE (NEGATIVE); NITRITE URINE NEGATIVE (NEGATIVE); OCCULT BLOOD URINE NEGATIVE (NEGATIVE); PROTEIN URINE NEGATIVE (NEGATIVE); SPECIFIC GRAVITY URINE 1.019 (1.005-1.030)
[2024-04-12] MEDS ORDERED: KETOROLAC 30MG/ML VIAL IM NR (00:45)
[2024-04-12] MEDS ORDERED: NITR-87 MT (00:59)
[2024-04-12] MEDS ORDERED: IBUP-2028 MT (00:59)
[2024-04-12 03:12] LABS: SQUAMOUS EPITHELIAL CELL URINE FEW /lpf (RARE/1+)
[2024-04-12 03:13] LABS: RBC URINE 0-2 /hpf (0-2); WBC URINE 0-2 /hpf (0-2)
[2024-04-12 03:16] LABS: BACTERIA URINE NONE SEEN
== END 2024-04-12 02:01 | disposition home or self-care (01) ==
LOC: ER 20:07
DX: K80.20 Calculus of gallbladder without cholecystitis without obstruction (principal); N39.0 Urinary tract infection, site not specified; J45.909 Unspecified asthma, uncomplicated; E11.9 Type 2 diabetes mellitus without complications; I10 Essential (primary) hypertension
CPT/HCPCS: 36415; 74176; 80048; 80076; 81003; 84703; 85025; 99284

== ENCOUNTER 2025-06-08 12:58 | Emergency (ER) | payer OTHER ==
[~2025-06-08] VITALS: Ht 167.6 cm; Wt 120.0 kg
[~2025-06-08 12:58] MED LIST changes: +IBUP-2028 MT; +NITR-87 MT
[2025-06-08 12:59] VITALS: O2SAT 98
[2025-06-08 13:39] LABS: CLARITY URINE CLEAR (CLEAR); COLOR URINE YELLOW (YELLOW); GLUCOSE URINE 3+ (NEGATIVE); KETONES URINE NEGATIVE (NEGATIVE); LEUKOCYTE ESTERASE URINE 1+ (NEGATIVE); NITRITE URINE NEGATIVE (NEGATIVE); OCCULT BLOOD URINE NEGATIVE (NEGATIVE); PH URINE 6.0 (4.5-8.0); PROTEIN URINE NEGATIVE (NEGATIVE); SPECIFIC GRAVITY URINE 1.014 (1.005-1.030); UROBILINOGEN URINE 0.2 E.U./dL (0.2-1.0)
[2025-06-08 13:56] LABS: BASOPHILS % 0.7 % (0.0-2.0); EOSINOPHILS % 1.7 % (0.0-5.0); HEMATOCRIT. 32.1 % (36.0-48.0); HEMOGLOBIN. 10.8 g/dL (12.0-16.0); LYMPHOCYTES % 34.2 % (20.0-50.0); MEAN PLATELET VOLUME 7.9 fl (7.4-10.4); MONOCYTES % 8.0 % (2.0-8.0); NEUTROPHILS % 55.4 % (40.0-76.0); PLATELET 217 x1000/uL (130-400); RED BLOOD CELL COUNT 3.61 mill/uL (4.2-5.4); RED CELL DISTRIBUTION WIDTH 14.6 % (11.6-14.6)
[2025-06-08 13:58] LABS: BACTERIA URINE 1+; SQUAMOUS EPITHELIAL CELL URINE 1+ /lpf (RARE/1+)
[2025-06-08 13:59] LABS: RBC URINE NONE SEEN /hpf (0-2); WBC URINE 0-2 /hpf (0-2)
[2025-06-08] MEDS: SODIUM CHLORIDE 0.9% 1,000 ML IV ONE (14:00)
[2025-06-08 14:12] LABS: CREATININE 1.2 mg/dL (0.6-1.0)
[2025-06-08 14:13] LABS: UREA NITROGEN BLOOD 13.0 mg/dL (9-23)
[2025-06-08 14:22] LABS: HCG SCREEN NEGATIVE
[2025-06-08] MEDS ORDERED: CEPH500T MT (14:24)
[2025-06-08 14:34] LABS: BG DEOXYHEMOGLOBIN 2.2 % (0.0-5.0)
[2025-06-08] MEDS: INSULIN REGULAR (HUMULIN R) 1000UNITS/10ML VIAL IV ONE (15:04)
[2025-06-08 16:10] VITALS: BP 132/73; PULSE 99; RESP 14; TEMP 37.2; O2SAT 99
== END 2025-06-08 16:22 | disposition home or self-care (01) ==
LOC: ER 12:58
DX: E11.65 Type 2 diabetes mellitus with hyperglycemia (principal); N39.0 Urinary tract infection, site not specified; J45.909 Unspecified asthma, uncomplicated; I10 Essential (primary) hypertension; Z79.4 Long term (current) use of insulin; Z79.899 Other long term (current) drug therapy
CPT/HCPCS: 99284; 96374; 96361; 80048; 81003; 82010; 82962; 84703; 85025; 36415; 82375; 82803; 93005; J7030; J1815

== ENCOUNTER 2025-06-10 02:53 | Emergency (ER) | payer OTHER ==
[~2025-06-10] VITALS: Ht 165.1 cm; Wt 79.0 kg
[~2025-06-10 02:53] MED LIST changes: +CEPH500T MT
[2025-06-10 02:54] VITALS: O2SAT 100
[2025-06-10] MEDS: SODIUM CHLORIDE 0.9% 1,000 ML IV ONE (04:07)
[2025-06-10 04:14] LABS: CLARITY URINE CLEAR (CLEAR); COLOR URINE YELLOW (YELLOW); GLUCOSE URINE 3+ (NEGATIVE); KETONES URINE NEGATIVE (NEGATIVE); LEUKOCYTE ESTERASE URINE TRACE (NEGATIVE); NITRITE URINE NEGATIVE (NEGATIVE); OCCULT BLOOD URINE TRACE (NEGATIVE); PH URINE 6.5 (4.5-8.0); PROTEIN URINE NEGATIVE (NEGATIVE); SPECIFIC GRAVITY URINE 1.010 (1.005-1.030); UROBILINOGEN URINE 0.2 E.U./dL (0.2-1.0)
[2025-06-10 04:18] LABS: BASOPHILS % 0.6 % (0.0-2.0); EOSINOPHILS % 1.3 % (0.0-5.0); HEMATOCRIT. 32.2 % (36.0-48.0); HEMOGLOBIN. 10.5 g/dL (12.0-16.0); LYMPHOCYTES % 45.1 % (20.0-50.0); MEAN PLATELET VOLUME 9.0 fl (7.4-10.4); MONOCYTES % 8.7 % (2.0-8.0); NEUTROPHILS % 44.3 % (40.0-76.0); PLATELET 212 x1000/uL (130-400); RED BLOOD CELL COUNT 3.58 mill/uL (4.2-5.4); RED CELL DISTRIBUTION WIDTH 14.8 % (11.6-14.6)
[2025-06-10 04:30] LABS: HCG SCREEN NEGATIVE
[2025-06-10 04:36] LABS: *AMPHETAMINES SCREEN URINE NEGATIVE (NEGATIVE)
[2025-06-10 04:37] LABS: *BARBITURATES SCREEN URINE NEGATIVE (NEGATIVE); *BENZODIAZEPINES SCREEN URINE NEGATIVE (NEGATIVE); *COCAINE SCREEN URINE NEGATIVE (NEGATIVE); METHADONE URINE SCREEN NEGATIVE (NEGATIVE)
[2025-06-10 04:38] LABS: CANNABINOID URINE SCREEN NEGATIVE (NEGATIVE); ECSTASY MDMA SCREEN URINE NEGATIVE (NEGATIVE); OPIATES URINE SCREEN NEGATIVE (NEGATIVE); PHENCYCLIDINE URINE SCREEN NEGATIVE (NEGATIVE)
[2025-06-10 04:39] LABS: ASPARTATE AMINOTRANSFERASE 14 IU/L (<34); BILIRUBIN DIRECT < 0.1 mg/dL (<=3.0); BILIRUBIN TOTAL 0.3 mg/dL (0.1-1.0); PROTEIN TOTAL 6.7 g/dL (6.0-8.3)
[2025-06-10 04:40] LABS: ETHANOL BLOOD < 10 mg/dL (<10); UREA NITROGEN BLOOD 17 mg/dL (9-23)
[2025-06-10 04:43] LABS: CREATININE 1.7 mg/dL (0.6-1.0)
[2025-06-10 04:56] LABS: RBC URINE 0-2 /hpf (0-2); WBC URINE 0-2 /hpf (0-2)
[2025-06-10] MEDS: INSULIN REGULAR (HUMULIN R) 1000UNITS/10ML VIAL SUBCUT SCH (05:00)
[2025-06-10 05:10] VITALS: BP 157/82; PULSE 109; RESP 24; TEMP 36.6; O2SAT 99
[2025-06-10 05:15] LABS: BACTERIA URINE TRACE
== END 2025-06-10 07:05 | disposition home or self-care (01) ==
LOC: ER 02:53 → EDBEDREQTM 04:46 → EDBEDREQSVC 04:46 → EDBEDREQ 04:46 → ER 07:05 → CMPBEDREQ 06-11 07:23
DX: E11.65 Type 2 diabetes mellitus with hyperglycemia (principal); Z79.4 Long term (current) use of insulin; Z79.899 Other long term (current) drug therapy
CPT/HCPCS: 80076; 80305; 80048; 81003; 81025; 82010; 80320; 82962; 84703; 83690; 85025; 36415; 71045; 93005; 96360; 99285; J1815; J7030; Z7610; A4606; G0480

== ENCOUNTER 2025-08-22 15:36 | Emergency (ER) | payer OTHER ==
[~2025-08-22] VITALS: Ht 157.5 cm; Wt 73.0 kg
[2025-08-22 15:44] VITALS: O2SAT 99
[2025-08-22 18:10] LABS: CLARITY URINE CLOUDY (CLEAR); COLOR URINE YELLOW (YELLOW); GLUCOSE URINE NEGATIVE (NEGATIVE); KETONES URINE NEGATIVE (NEGATIVE); LEUKOCYTE ESTERASE URINE 3+ (NEGATIVE); NITRITE URINE POSITIVE (NEGATIVE); OCCULT BLOOD URINE NEGATIVE (NEGATIVE); PH URINE 6.5 (4.5-8.0); PROTEIN URINE NEGATIVE (NEGATIVE); SPECIFIC GRAVITY URINE 1.012 (1.005-1.030); UROBILINOGEN URINE 0.2 E.U./dL (0.2-1.0)
[2025-08-22 18:27] LABS: RBC URINE 0-2 /hpf (0-2); SQUAMOUS EPITHELIAL CELL URINE 1+ /lpf (RARE/1+)
[2025-08-22 18:28] LABS: BACTERIA URINE 3+
[2025-08-22] MEDS ORDERED: CEPH500C2 MT (18:34)
[2025-08-22] MEDS ORDERED: ONDA4TAB50 MT (18:34)
[2025-08-22] MEDS: ACETAMINOPHEN 500MG TABLET PO ONE (18:39)
[2025-08-22] MEDS: ONDANSETRON 4MG ODT PO ONE (18:40)
[2025-08-22 18:53] VITALS: BP 129/72; PULSE 89; RESP 15; TEMP 36.8; O2SAT 99
== END 2025-08-22 18:54 | disposition home or self-care (01) ==
LOC: ER 15:36
DX: N39.0 Urinary tract infection, site not specified (principal); R11.0 Nausea; E11.9 Type 2 diabetes mellitus without complications; Z79.4 Long term (current) use of insulin; Z79.899 Other long term (current) drug therapy
CPT/HCPCS: 99283; 81003; 87086; 87186; 87077; Q0162

== ENCOUNTER 2025-09-12 11:32 | Emergency (ER) | payer OTHER ==
[~2025-09-12] VITALS: Ht 162.6 cm; Wt 91.0 kg
[~2025-09-12 11:32] MED LIST changes: +CEPH500C2 MT; +ONDA4TAB50 MT
[2025-09-12 11:35] VITALS: TEMP 36.8; O2SAT 99
[2025-09-12] MEDS: SODIUM CHLORIDE 0.9% 1,000 ML IV ONE (12:38)
[2025-09-12 12:41] LABS: BASOPHILS % 0.5 % (0.0-2.0); EOSINOPHILS % 1.2 % (0.0-5.0); HEMATOCRIT. 33.8 % (36.0-48.0); HEMOGLOBIN. 10.9 g/dL (12.0-16.0); LYMPHOCYTES % 30.5 % (20.0-50.0); MEAN PLATELET VOLUME 8.3 fl (7.4-10.4); MONOCYTES % 4.5 % (2.0-8.0); NEUTROPHILS % 63.3 % (40.0-76.0); PLATELET 244 x1000/uL (130-400); RED BLOOD CELL COUNT 3.89 mill/uL (4.2-5.4); RED CELL DISTRIBUTION WIDTH 15.1 % (11.6-14.6)
[2025-09-12 12:58] LABS: CREATININE 1.3 mg/dL (0.6-1.0); UREA NITROGEN BLOOD 15 mg/dL (9-23)
[2025-09-12 13:00] LABS: ASPARTATE AMINOTRANSFERASE 16 IU/L (<34); BILIRUBIN DIRECT 0.2 mg/dL (<=3.0); TROPONIN I HIGH SENSITIVITY < 4 ng/L (3.0-34)
[2025-09-12 13:01] LABS: BILIRUBIN TOTAL 0.5 mg/dL (0.1-1.0); PROTEIN TOTAL 7.8 g/dL (6.0-8.3)
[2025-09-12] MEDS: INSULIN REGULAR (HUMULIN R) 1000UNITS/10ML VIAL IV ONE (15:32)
[2025-09-12 16:24] LABS: TROPONIN I HIGH SENSITIVITY < 4 ng/L (3.0-34)
[2025-09-12] MEDS ORDERED: INSU100I24 SQ (16:40)
[2025-09-12] MEDS ORDERED: INSU100V43 SQ (16:40)
[2025-09-12 16:59] VITALS: BP 142/77; PULSE 83; RESP 14; O2SAT 99
== END 2025-09-12 17:08 | disposition home or self-care (01) ==
LOC: ER 11:32 → CANBEDREQ 16:01 → ER 17:08
DX: E11.65 Type 2 diabetes mellitus with hyperglycemia (principal); Z79.4 Long term (current) use of insulin; Z79.899 Other long term (current) drug therapy; Z91.148 Patient's other noncompliance with medication regimen for other reason
CPT/HCPCS: 99285; 96374; 71045; 96361; 80076; 80048; 82010; 82962; 83735; 85025; 84484; 36415; 93005; J7030; J1815